=== PATIENT | female | born 1965 | race Caucasian/White ===

== ENCOUNTER → 2024-05-19 11:29 | Outpatient (REF) | payer OTHER, SELFPAY ==
[2024-05-19 12:32] LABS: ALT (SGPT) 35 U/L (0-35); AST (SGOT) 47 U/L (14-36); Albumin 3.6 g/dl (3.5-5.0); Alkaline Phosphatase 88 U/L (38-126); Blood Urea Nitrogen 13 mg/dl (7-17); Direct Bilirubin 0.4 mg/dl (0.0-0.4); Total Bilirubin 1.1 mg/dl (0.2-1.3); Total Protein 6.7 g/dl (6.3-8.2)
[2024-05-19 12:48] LABS: IgA 298 mg/dl (70-400)
[2024-05-21 06:07] LABS: tTG IgA Antibody 6.07 FLU (0.00-4.99)
== END ==
LOC: RAD 11:29
PROVIDERS: ATTENDING PHYSICIAN Internal Medicine Gastroenterology
DX: K57.92 Diverticulitis of intestine, part unspecified, without perforation or abscess without bleeding (principal)
CPT/HCPCS: 36415; 74177; 80076; 82565; 82784; 83516; 84520; 86231; Q9967

== ENCOUNTER 2024-05-23 06:21 | Day surgery (SDC) | payer OTHER, SELFPAY | END 2024-05-23 15:07 | disposition home or self-care (01) | LOC: GI 06:21 | PROVIDERS: ATTENDING PHYSICIAN Internal Medicine Gastroenterology | DX: K52.9 Noninfective gastroenteritis and colitis, unspecified (principal); R93.3 Abnormal findings on diagnostic imaging of other parts of digestive tract; K57.30 Diverticulosis of large intestine without perforation or abscess without bleeding; K64.0 First degree hemorrhoids; D12.3 Benign neoplasm of transverse colon; K63.5 Polyp of colon; K62.1 Rectal polyp; R76.8 Other specified abnormal immunological findings in serum; R13.10 Dysphagia, unspecified; K22.2 Esophageal obstruction; K44.9 Diaphragmatic hernia without obstruction or gangrene; K31.89 Other diseases of stomach and duodenum; R11.10 Vomiting, unspecified | CPT/HCPCS: 45380; 43249; 43239; 88305; 88342 ==

== ENCOUNTER 2024-08-10 06:22 | Day surgery (SDC) | payer OTHER, SELFPAY | END 2024-08-10 11:45 | disposition home or self-care (01) | LOC: GI 06:22 | PROVIDERS: ATTENDING PHYSICIAN Internal Medicine Gastroenterology | DX: R13.10 Dysphagia, unspecified (principal); K44.9 Diaphragmatic hernia without obstruction or gangrene; K22.2 Esophageal obstruction; K22.89 Other specified disease of esophagus; K31.89 Other diseases of stomach and duodenum | CPT/HCPCS: 43249; 43239; 88305 ==